=== PATIENT | female | born 1980 | race Caucasian/White ===

== ENCOUNTER 2017-10-20 20:30 | Emergency (ER) | payer BC ==
[2017-10-20] MEDS ORDERED: 0.9 % SODIUM CHLORIDE 1,000 ML IV ONE ×3 (20:47→22:00)
[2017-10-20] MEDS ORDERED: diphenhydrAMINE HCL 50 MG/ML VIAL IVP ONE (20:54)
[2017-10-20] MEDS ORDERED: methylPREDNISolone SOD SUCC 125 MG/2 ML VIAL IVP ONE (20:54)
[2017-10-20] MEDS ORDERED: FAMOTIDINE/PF 20 MG/2 ML VIAL IVP ONE (20:55)
--- NOTE | 2017-10-20 21:01 | ED Physician Documentation ---
General Adult - HISTORIAN Historian: patient - HPI Stated Complaint: allergic reaction Chief Complaint: Allergic Reaction Onset: minutes (30) Timing: still present, better Severity: mild Further Comments: yes (complaint of rash that started about 30 min ago. She states she woke to itching palms and feet. She got up and notes while her was getting the benadryl she was getting hives and felt like her mouth was swelling. She did take 50 mg of benadryl and she is now feeling after that she is somewhat improved. She denies any shortness of air. She is not sure what she reacted to with the rash) Last known Well Code/Unknown Code: Unknown - ROS CONST: no problems CVS/RESP: none GI/: none MS/SKIN/LYMPH: rash NEURO/PSYCH: headache. denies: dizziness, tingling, difficulty with speech - PAST HX Past History: none Other History: none Surgeries/Procedures: none Immunizations: UTD Allergies/Adverse Reactions: Allergies Allergy/AdvReac Type Severity Reaction Status Date / Time No Known Allergies Allergy Verified 10/20/17 20:37 Home Medications: Ambulatory Orders Medication Instructions Recorded NK 10/20/17 - SOCIAL HX Smoking History: non-smoker Alcohol Use: none Drug Use: none - FAMILY HX Family History: Yes - REVIEWED ASSESSMENTS Nursing Assessment Reviewed: Yes Vitals Reviewed: Yes Progress - Progress Progress: 2114: rash is resolved - she states her tongue and mouth feel normal at this time. Face is not flushed DG 2213: No further rash. She is resting quietly. She denies any issues with swelling in mouth DG 2300: no further complaints. Plan discussed and prescribed meds noted. She does have Benadryl at home DG ED Results Lab/Radiology - Orders Orders: ED Orders Category Date Time Status Place IV Lock 1T Care 10/20/17 20:53 Ordered CBC/PLATELET/DIFF Stat Lab 10/20/17 20:54 Ordered CMP Stat Lab 10/20/17 20:54 Ordered 0.9 % Sodium Chloride [Normal Saline] 1,000 ml Med 10/20/17 20:47 Discontinued IV .STK-MED Famotidine/Pf [Pepcid] Med 10/20/17 20:55 Once 20 mg IVP NOW ONE NORMAL SALINE @ 1000 MLS/HR ( 1000ml BOLUS) Med 10/20/17 20:53 Ordered 0.9 % Sodium Chloride [Normal Saline] 1,000 ml IV Q1H diphenhydrAMINE HCL [Benadryl] Med 10/20/17 20:54 Once 25 mg IVP NOW ONE methylPREDNISolone SOD SUCC [Solu-MEDROL] Med 10/20/17 20:54 Once 125 mg IVP NOW ONE General Adult Physical Exam - PHYSICAL EXAM GENERAL APPEARANCE: no distress EENT: eye inspection normal, ENT inspection normal, pharynx normal, no signs of dehydration NECK: normal inspection RESPIRATORY: no resp distress CVS: reg rate & rhythm, heart sounds normal, equal pulses, no murmur ABDOMEN: soft, no organomegaly, normal bowel sounds, no distension SKIN: other (hive erruptions on bilateral upper arms - lower legs and abdomen. face flushed) EXTREMITIES: non-tender, normal range of motion, no evidence of injury, no edema NEURO: oriented X3, CN's nml as tested, motor nml, sensation nml Discharge Clincal Impression: Allergic reaction Qualifiers: Encounter type: initial encounter Qualified Code(s): T78.40XA - Allergy, unspecified, initial encounter Referrals: Arlette Clark MD [Primary Care Provider] - 2 Days Comments: 1. Medrol Dose pack - as directed start 10.21.2017 after noon 2. zantac 150 mg take 1 by mouth bid x 10 days 3. Claritin 10 mg take 1 by mouth daily 4. Watch exposures 5. Epi Pen for emergencies 6. Follow up with PCP in 2-4 days 7. Return to ER for any concerns Condition: Stable Disposition: 01 HOME, SELF-CARE Decision to Admit: NO Date of Decison to Admit: 10/20/17 Decision Time: 23:10
[2017-10-20 21:36] LABS: MEAN CORPUSCULAR HEMOGLOBIN 28.8 pg (28.0-34.0); MEAN CORPUSCULAR VOLUME 87.2 fl (80.0-100.0)
[2017-10-20 21:37] LABS: BASOPHILS % 0.2 (0.0-1.5); EOSINOPHILS % 1.5 % (0.0-6.8); MONOCYTES % 3.3 % (0.0-11.0)
[2017-10-20 21:44] LABS: eGFR (African) > 60; eGFR (Non-African) > 60
[2017-10-20 23:23] VITALS: BP 115/62
[2017-10-21 05:55] LABS: NEUTROPHILS # 4.6 # k/uL (1.4-7.7)
== END 2017-10-20 23:05 | disposition home or self-care (01) ==
LOC: ED 20:30
DX: R21 Rash and other nonspecific skin eruption (principal); T78.40XA Allergy, unspecified, initial encounter; Y92.9 Unspecified place or not applicable; Y93.9 Activity, unspecified; Y99.9 Unspecified external cause status
CPT/HCPCS: 80053; 85025; J1200; J2930; J7030; 96365; 96366; 96375; S0028; S1016